=== PATIENT | female | born 1995 | race Caucasian/White ===

== ENCOUNTER 2018-03-18 15:31 | Outpatient (CLI) | payer MEDICAID ==
[~2018-03-18] VITALS: Ht 167.6 cm; Wt 84.5 kg
[2018-03-18 15:52] VITALS: BP 119/73; PULSE 70; TEMP 97.9
[2018-03-18] MEDS ORDERED: PRENATAL (16:04)
[2018-03-18 16:07] VITALS: BP 119/73; PULSE 70; TEMP 97.9
[2018-03-18 16:58] VITALS: BP 122/66; PULSE 68
== END 2018-03-18 17:07 | disposition home or self-care (01) ==
LOC: LDRO 15:31
DX: O62.9 Abnormality of forces of labor, unspecified (principal); Z3A.39 39 weeks gestation of pregnancy

== ENCOUNTER 2018-03-22 03:31 | Outpatient (CLI) | payer MEDICAID ==
[~2018-03-22] VITALS: Ht 167.6 cm; Wt 84.5 kg
[~2018-03-22 03:31] MED LIST: PRENATAL
[2018-03-22 04:30] VITALS: BP 119/68; PULSE 66; TEMP 97.4
== END 2018-03-22 04:30 | disposition home or self-care (01) ==
LOC: LDRO 03:31
DX: O62.9 Abnormality of forces of labor, unspecified (principal); Z3A.40 40 weeks gestation of pregnancy

== ENCOUNTER 2018-03-22 16:41 | Inpatient (IN) | payer MEDICAID ==
[~2018-03-22] VITALS: Ht 167.6 cm; Wt 85.5 kg
[2018-03-22] VITALS (21 sets, daily range): BP systolic 102–128; BP diastolic 55–74; PULSE 72–85; TEMP 97.9–99.6
[2018-03-22 18:23] LABS: BASO % 0.2 % (0.0-2.0); EOS % 0.2 % (0-4.0); GRAN # 10.8 (1.4-6.5); GRAN % 81.2 % (42.2-75.2); HEMOGLOBIN 12.4 g/dl (12.5-16.0); LYMPH # 1.4 (1.2-3.4); LYMPH % 10.1 % (20.0-51.0); MEAN CELL VOLUME 88 fl (80.0-100.0); MEAN CORPUSCULAR HEMOGLOBIN 31 pg (27.0-31.0); MEAN CORPUSCULAR HGB CONC 35 g/dl (33.0-37.0); MEAN PLATELET VOLUME 9.4 fl (7.4-10.4); MONO % 7.8 % (1.7-9.3); PLATELET COUNT 171 K/mm3 (130-400); RED BLOOD COUNT 4.06 M/mm3 (4.10-5.30); REDCELL DISTRIBUTION WIDTH-CV 13.3 % (11.5-14.5)
[2018-03-22 18:25] LABS: HEMATOCRIT 35.6 % (37.0-47.0)
[2018-03-23] VITALS (16 sets, daily range): BP systolic 98–144; BP diastolic 53–90; PULSE 70–130; TEMP 97.6–101
[2018-03-24 07:52] VITALS: BP 84/46; PULSE 84; TEMP 98
[2018-03-24] MEDS ORDERED: PERCOCET 325 MG1 TA2 PO (08:51)
[2018-03-24] MEDS ORDERED: IBU800 M1 PO (08:51)
== END 2018-03-24 13:25 | disposition home or self-care (01) | DRG 775 ==
LOC: LDRO 16:41 → LDR 16:50 → LDRO 18:10 → LDR 18:10 → OB 03-23 03:30
PROVIDERS: Obstetrics & Gynecology
PROC: 10E0XZZ Delivery of Products of Conception, External Approach (ICD-10-PCS; principal; 2018-03-23)
PROC: 0UQGXZZ Repair Vagina, External Approach (ICD-10-PCS; 2018-03-23)
DX: O71.4 Obstetric high vaginal laceration alone (principal); Z3A.40 40 weeks gestation of pregnancy; Z37.0 Single live birth
CPT/HCPCS: J2590; J2795; J7120

== ENCOUNTER 2019-11-04 09:15 | Emergency (ER) | payer BC ==
[~2019-11-04] VITALS: Ht 167.6 cm; Wt 63.6 kg
[~2019-11-04 09:15] MED LIST changes: +IBU800 M1 PO; +PERCOCET 325 MG1 TA2 PO
[2019-11-04 09:27] VITALS: BP 128/67; TEMP 98.7
[2019-11-04 09:49] LABS: COLLECTION METHOD CLEAN CATCH
[2019-11-04 10:15] LABS: MUCOUS Present /lpf; PH 6 (5-8); URINE APPEARANCE Cloudy; URINE BACTERIA None Seen /hpf; URINE BILIRUBIN Negative (NEGATIVE); URINE BLOOD 1+ (NEGATIVE); URINE COLOR Yellow; URINE GLUCOSE Negative (NEGATIVE); URINE KETONE Negative (NEGATIVE); URINE LEUKOCYTE ESTERASE 3+ (NEGATIVE); URINE NITRATE Negative (NEGATIVE); URINE PROTEIN(semi-quant) Negative (NEGATIVE); URINE UROBILINOGEN Negative (NEGATIVE)
[2019-11-04] MEDS ORDERED: CEFTIN 250250 MG/TAB PO (11:29)
[2019-11-04] MEDS ORDERED: FLAGYL500 MG PO (11:35)
[2019-11-04 12:00] VITALS: PULSE 89
== END 2019-11-04 12:00 | disposition home or self-care (01) ==
LOC: COL.ER 09:15
PROVIDERS: Physician Assistant
DX: N73.9 Female pelvic inflammatory disease, unspecified (principal); N39.0 Urinary tract infection, site not specified
CPT/HCPCS: J0696; J1885